=== PATIENT | female | born 1990 | race Caucasian/White ===

== ENCOUNTER 2019-11-26 07:26 | Emergency (ER) | payer OTHER ==
[~2019-11-26] VITALS: Ht 182.9 cm; Wt 90.5 kg
[2019-11-26 07:42] VITALS: BP 116/66; TEMP 98.1
[2019-11-26] MEDS ORDERED: SMZ/TMPDS PO (08:24)
[2019-11-26] MEDS ORDERED: AMOXICILLIN 8751 TAB PO (08:25)
[2019-11-26 08:43] VITALS: PULSE 86
== END 2019-11-26 08:44 | disposition home or self-care (01) ==
LOC: COL.ER 07:26
DX: L02.01 Cutaneous abscess of face (principal)